=== PATIENT | male | born 1955 | race Caucasian/White ===

== ENCOUNTER 2021-09-22 09:22 | Emergency (ER) | payer MEDICARE ==
[~2021-09-22] VITALS: Ht 175 cm; Wt 98.4 kg
--- NOTE | 2021-09-22 09:54 | ED EENT ---
History of Present Illness General Chief Complaint: Facial Problems Stated Complaint: R SIDE FACIAL NUMBNESS Source: patient Exam Limitations: no limitations History of Present Illness Date Seen by Provider: Sep 22, 2021 Time Seen by Provider: 09:25 Initial Comments Patient to the ER by private conveyance with his significant other and chief complaint for the past 5 days he has had some facial droop on the right side. No slurred speech, difficulty speaking, confusion, weakness in his arms or legs difficulty walking. No trauma. He has had some pressure in his right ear as well. He is also had sinus congestion for the past several months since having COVID-19. 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 No history of stroke. He does have a history of type 2 diabetes on oral antiglycemic's. He has not been on steroids or antivirals. He does not smoke and only occasionally drinks a beer. Allergies and Home Medications Allergies Coded Allergies: No Known Drug Allergies (Unverified , 09/22/21) Patient Home Medication List Home Medication List Reviewed: Yes Review of Systems Review of Systems Constitutional: No chills, No diaphoresis Eyes: Denies Blindness, Denies Blurred Vision Ears: Denies Dizziness, Denies Pain Nose: denies clots, denies congestion Mouth: denies clots, denies loose teeth Throat: denies pain, denies swelling Respiratory: No cough, No short of breath Musculoskeletal: No back pain, No gout All Other Systems Reviewed Negative Unless Noted: Yes Past [id number] Hx Patient Social History Tobacco Use?: No Smokeless Tobacco Frequency: Never a User Substance use?: No Alcohol Use?: Yes Alcohol Frequency: Rarely Pt feels they are or have been: No Past Medical History Surgery/Hospitalization HX: PMH: DM 2, HTN, EPHESEMA Physical Exam Vital Signs Vital Signs - First Documented 09/22/21 09:44 Temp 35.6 Pulse 103 Resp 18 B/P (MAP) 190/117 (141) Pulse Ox 98 Height, Weight, BMI Height: '" Weight: lbs. oz. kg; BMI Method: General Appearance: WD/WN, no apparent distress Eyes: bilateral eye normal inspection, bilateral eye PERRL (3 mm symmetric), bilateral eye EOMI Ears: right ear other (Right TM with serous fluid congestion but no bulging erythema or loss of landmarks); left ear TM normal; bilateral ear auricle normal, bilateral ear canal normal Nose: normal inspection; No discharge Mouth/Throat: normal mouth inspection, pharynx normal Neck: full range of motion, supple, normal inspection Cardiovascular: normal peripheral pulses, regular rate, rhythm Respiratory: no respiratory distress, no accessory muscle use Neurologic/Psychiatric: other (Cranial nerve #7 palsy with symmetric sensation bilaterally but small amount of drooping around the right mouth and right eye and loss of furling of the brow on the right side. No other cranial nerves involved.) Skin: normal color, warm/dry Progress/Results/Core Measures Results/Orders My Orders Orders - MOON LEE Methylprednisolone Sod Succ (Solu-Medrol (09/22/21 10:00) Medications Given in ED Current Medications Medications Dose Ordered Sig/Maria Antonia Route Start Time Stop Time Status Last Admin Dose Admin Methylprednisolone Sodium Succinate 62.5 mg ONCE ONCE IM 09/22/21 10:00 09/22/21 10:01 09/22/21 09:56 62.5 MG Vital Signs/I&O 09/22/21 09:44 Temp 35.6 Pulse 103 Resp 18 B/P (MAP) 190/117 (141) Pulse Ox 98 Progress Progress Note : Time: 10:02 Progress Note Made some recommendations for the patient's nasal congestion and probable viral labyrinthitis. He appears to be having a cranial nerve palsy likely viral nature. We will give him 62 mg IM Solu-Medrol and put him on antivirals. Encouraged him to use some eyedrops and return precautions were given. Departure Impression Primary Impression: Facial paralysis/Peoa palsy Disposition: 01 HOME, SELF-CARE Condition: Stable Departure-Patient Inst. Decision time for Depature: 10:04 Referrals: SAMIA JETT MD, BENJAMEN H MD (PCP) Primary Care Physician Patient Instructions: Multani's Palsy (DC) Add. Discharge Instructions: You seem to be having a palsy of cranial nerve #7 also known as Multani's palsy. This should be isolated just to the face. If you are having new onset of other more worrisome symptoms such as weakness in your arms and legs the need to return to the ER or your doctor for reevaluation. Typically this is caused by a virus and the inflammation and swelling causing the nerve to go numb can be addressed with a steroid and antivirals. Acyclovir 5 times a day for a week. Medrol Dosepak take as directed. If you get nauseated you can use Zofran/ondansetron 1 tablet every 6 hours under the tongue. 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 Expect resolution of symptoms in a couple weeks. For your nasal congestion I would suggest a decongestant such as chlorpheniramine, Sudafed etc. You may also use nasal sprays like Afrin which is a decongestant. For the next 2 weeks I would suggest you use Flonase which is a nasal steroid 1 puff each nostril twice a day. This will help relieve the pressure in your ear as well as some of the congestion in your nose. If this does not help then I suggest you follow-up with Dr. Jett, ear nose and throat surgeon. All discharge instructions reviewed with patient and/or family. Voiced unde rstanding. Scripts Acyclovir (Acyclovir) 800 Mg Tablet 800 MG PO 5XD for 7 Days, #35 TAB 0 Refills Prov: MOON LEE 09/22/21 Methylprednisolone (Medrol Dose pack) 4 Mg Tab 4 MG PO UD for 6 Days, #21 TAB 0 Refills as directed per dose pack Prov: MOON LEE 09/22/21 Ondansetron (Ondansetron Odt) 4 Mg Tab.rapdis 4 MG PO Q6H PRN for NAUSEA/VOMITING, #8 TAB 0 Refills Prov: MOON LEE 09/22/21 MOON LEE Sep 22, 2021 09:54
[2021-09-22] MEDS ORDERED: methylPREDNISolone 125 MG (Solu-MEDROL) VIAL IM ONE (10:00)
[2021-09-22] MEDS ORDERED: ONDA4TAB11 PO (10:10)
[2021-09-22] MEDS ORDERED: ACYC-112 PO (10:10)
[2021-09-22] MEDS ORDERED: NF-METHYLP PO (10:10)
[2021-09-22 10:22] VITALS: BP 168/104
== END 2021-09-22 10:22 | disposition home or self-care (01) ==
LOC: ER 09:25
DX: G51.0 Bell's palsy (principal); E11.9 Type 2 diabetes mellitus without complications; Z86.16 Personal history of COVID-19; Z79.84 Long term (current) use of oral hypoglycemic drugs
CPT/HCPCS: 99284